=== PATIENT | male | born 1950 | race Caucasian/White ===

== ENCOUNTER → 2018-03-15 13:56 | Emergency (ER) | payer MEDICARE, OTHER ==
[~2018-03-15 13:56] MED LIST: Ketorolac INJ* 30 MG/ML 1 ML VIAL IM ONE
--- NOTE | 2018-03-15 15:55 | ED ---
Lower Extremity - HPI Summary HPI Summary: 68 year-old male presents with left foot pain that is severe today. He states that he had an injury a week ago where he broke his fibula by twisting his ankle. He states he felt a pop. She was seen at [facility] and diagnosed with a fibula fracture and had follow-up with orthopedic. They placed in a cam walking boot. He has not been elevating his foot. He denies any numbness or tingling. He states the pain has been severe today. Has not taking anything for his pain. Has not been placing ice on the area. - History of Current Complaint Chief Complaint: EDExtremityLower Stated Complaint: LT FOOT PAIN Time Seen by Provider: 03/15/18 14:48 Pain Intensity: 10 - Allergies/Home Medications Allergies/Adverse Reactions: Allergies Allergy/AdvReac Type Severity Reaction Status Date / Time No Known Allergies Allergy Verified 03/15/18 14:04 PMH/Surg Hx/FS Hx/Imm Hx Endocrine/Hematology History: Denies: Hx Diabetes Cardiovascular History: Reports: Hx Hypertension, Other Cardiovascular Problems/ Disorders - HYPERLIPIDEMIA Respiratory History: Denies: Hx Asthma GI History: Reports: Hx Gastroesophageal Reflux Disease - OK ON DAILY MED Musculoskeletal History: Reports: Other Musculoskeletal History Sensory History: Reports: Hx Contacts or Glasses - GLASSES, Hx Hearing Aid - KAVON INST GIVEN ONE IS LOST Opthamlomology History: Reports: Hx Contacts or Glasses - GLASSES Psychiatric History: Reports: Hx Anxiety, Hx Depression - OK ON MEDS - Surgical History Surgery Procedure, Year, and Place: 1981 L [place] 2006 L [facility]NEE ARTHROSCOPY [facility] Hx Anesthesia Reactions: No Infectious Disease History: No Infectious Disease History: Denies: Traveled Outside the [place] in Last 30 Days - Social History Alcohol Use: None Substance Use Type: Reports: None Smoking Status (MU): Never Smoked Tobacco Review of Systems Negative: Fever Negative: Chest Pain Negative: Shortness Of Breath Positive: Myalgia - left foot pain All Other Systems Reviewed And Are Negative: Yes Physical Exam Triage Information Reviewed: Yes Vital Signs On Initial Exam: Initial Vitals Temp Pulse Resp BP Pulse Ox 96.8 F 64 16 174/91 97 03/15/18 14:01 03/15/18 14:01 03/15/18 14:01 03/15/18 14:01 03/15/18 14:01 Vital Signs Reviewed: Yes Appearance: Positive: Well-Appearing Skin: Positive: Warm, Dry Head/Face: Positive: Normal Head/Face Inspection Eyes: Positive: Normal, Conjunctiva Clear ENT: Positive: Pharynx normal Respiratory/Lung Sounds: Positive: Clear to Auscultation, Breath Sounds Present Cardiovascular: Positive: Normal, RRR Musculoskeletal: Positive: Limited @ - left ankle and foot, Edema Left - lateral malleolus and left foot, Other - capillary refill<2 secs, sensation grossly intact, tenderness over dorsum of foot, compartments of leg soft nontender Neurological: Positive: Normal Psychiatric: Positive: Normal Diagnostics - Vital Signs Vital Signs Temp Pulse Resp BP Pulse Ox 03/15/18 14:01 96.8 F 64 16 174/91 97 - Laboratory Lab Statement: Any lab studies that have been ordered have been reviewed, and results considered in the medical decision making process. - Radiology foot Xray Interpretation: No Acute Changes Radiology Interpretation Completed By: Radiologist Lower Extremity Course/Dx - Course Course Of Treatment: 68 year-old male presents with left foot pain that is severe today. He states that he had an injury a week ago where he broke his fibula by twisting his ankle. He states he felt a pop. She was seen at [facility] and diagnosed with a fibula fracture and had follow-up with orthopedic. They placed in a cam walking boot. He has not been elevating his foot. He denies any numbness or tingling. He states the pain has been severe today. Has not taking anything for his pain. Has not been placing ice on the area. On exam compartments of the leg are soft. Has tenderness over the dorsum of foot with edema is present. Neurovascular intact. X-ray shows no fx. discussed that pain is due to not elevating foot so swelling has dropped. istop checked will prescribe tramadol for the pain. told to elevate extremity. patient understand and agrees with plan. chikis called and said that script was sent in under a different provider today so told to cancel tramadol. - Diagnoses Differential Diagnosis/HQI/PQRI: Positive: Compartment Syndrome, Fracture ( Closed), Sprain Provider Diagnoses: Left foot pain, Left fibular fracture Discharge - Sign-Out/Discharge Documenting (check all that apply): Patient Departure - Discharge Plan Condition: Good Disposition: HOME Prescriptions: Ibuprofen TAB* [Motrin TAB* 600 MG] 600 mg PO Q12H PRN #15 tab PRN Reason: Pain traMADol TAB* [Ultram*] 50 mg PO Q12H PRN #8 tab MDD 2 PRN Reason: Pain Patient Education Materials: R.I.C.E. Treatment (ED) Referrals: Jaspreet Boyce MD [Primary Care Provider] - Additional Instructions: Stay off ankle as much as possible Ice, elevate, keep in brace Ibuprofen every 12 hours for pain, use tramadol every 12 hours as need for break through pain Follow up with ortho as scheduled Return to ED if develop or any new or worsening symptoms - Billing Disposition and Condition Condition: GOOD Disposition: Home
--- NOTE | 2018-03-15 16:30 | RAD ---
HISTORY: left foot pain COMPARISONS: None relevant available at the time of dictation VIEWS: 3 , Frontal, lateral, and oblique views of the left foot FINDINGS: BONE DENSITY: Normal. BONES: There is no displaced fracture. JOINTS: There is osteoarthritis of the first MTP joint. ALIGNMENT: There is no dislocation. SOFT TISSUES: Unremarkable. OTHER FINDINGS: None. IMPRESSION: OSTEOARTHRITIS OF THE FIRST MTP JOINT. NO ACUTE OSSEOUS INJURY. IF SYMPTOMS PERSIST, RECOMMEND REPEAT IMAGING.
[2018-03-15 17:08] VITALS: BP 186/133
== END | disposition home or self-care (01) ==
LOC: ED 13:56
DX: S82.402A Unspecified fracture of shaft of left fibula, initial encounter for closed fracture (principal); M79.672 Pain in left foot; I10 Essential (primary) hypertension; X58.XXXA Exposure to other specified factors, initial encounter; Y92.9 Unspecified place or not applicable
CPT/HCPCS: 96372; 99282; J1885